=== PATIENT | male | born 1955 | race Caucasian/White ===

== ENCOUNTER 2020-10-12 11:51 | Emergency (ER) | payer MEDICARE, OTHER ==
[~2020-10-12] VITALS: Ht 188 cm; Wt 131.8 kg
[2020-10-12 13:15] VITALS: BP 145/94
--- NOTE | 2020-10-12 13:46 | RAD ---
EXAM: 3 views left shoulder 2 views left humerus DATE: 10/12/2020 12:24 PM INDICATION: Reason: FELL AND HIS COUCH WHILE BREAKING DOWN A CARDBOARD BOX / Spl. Instructions: / History: COMPARISON: No Prior FINDINGS/ IMPRESSION: 1. No acute fracture or dislocation of the left shoulder and left humerus. 2. AC joint degenerative changes are seen. 3. Greater tuberosity enthesopathy. Electronically signed by: Syd Boggs MD (10/12/2020 1:43 PM) ANABELLA
[2020-10-12] MEDS ORDERED: IBUP-1673 PO (13:54)
--- NOTE | 2020-10-12 13:54 | PHYS DOC ---
Past History Past Medical History: Hypertension Past Surgical History: Other Additional Past Surgical Histo: CARDIC STENT X 1 Alcohol Use: None General Adult EDM: Chief Complaint: UPPER EXTREMITY PAIN HPI: HPI: History obtained from patient. Patient is a 64-year-old male who presents with the chief complaint of left shoulder injury. He states approximate 2 hours prior to arrival he was folding up a cardboard box. He states he stepped on this causing him to slip and fall. He states he struck the left outside part of the shoulder against a couch. States he noted immediate pop. States it is somewhat painful to range his arm but is able to. Denies striking his head or any neck pain. Denies loss of consciousness. Denies any obvious deformity. Does not take any medicine prior to arrival. Denies numbness or tingling. Denies weakness. States pain is aching in nature. States it is constant made worse with movement. No further complaints. Review of Systems: Review of Systems: Constitutional: Denies fever or chills Eyes: Denies change in visual acuity HENT: Denies nasal congestion or sore throat Respiratory: Denies cough or shortness of breath Cardiovascular: Denies chest pain or edema GI: Denies abdominal pain, nausea, vomiting, bloody stools or diarrhea : Denies dysuria Musculoskeletal: Positive for shoulder pain Integument: Denies rash Neurologic: Denies headache, focal weakness or sensory changes Endocrine: Denies polyuria or polydipsia Lymphatic: Denies swollen glands Psychiatric: Denies depression or anxiety Allergies: Allergies: Allergies Coded Allergies Type Severity Reaction Last Updated Verified No Known Drug Allergies 10/12/20 No Physical Exam: PE: Constitutional: Well developed, well nourished, no acute distress, non-toxic appearance. [] HENT: Normocephalic, atraumatic, bilateral external ears normal, oropharynx moist, no oral exudates, nose normal. [] Eyes: PERRLA, EOMI, conjunctiva normal, no discharge. [] Neck: Normal range of motion, no tenderness, supple, no stridor. [] Cardiovascular:Heart rate regular rhythm, no murmur [] Lungs & Thorax: Bilateral breath sounds clear to auscultation [] Abdomen: , soft, no tenderness, no masses, no pulsatile masses. [] Skin: Warm, dry, no erythema, no rash. [] Back: No tenderness, no CVA tenderness. [] Extremities: L SHOULDER: Mild distal clavicle pain is present. Humerus pain is not present. Scapula without tenderness. Theres no obvious joint or bony deformity. ROM of the joints without ligamentous laxity. Pain is present with ROM. Radial head is non-tender. No overlying erythema. Neurologic: Alert and oriented X 3, normal motor function, normal sensory function, no focal deficits noted. [] Psychologic: Affect normal, judgement normal, mood normal. [] Current Patient Data: Vital Signs: Vital Signs Date Time Temp Pulse Resp B/P (MAP) Pulse Ox O2 Delivery O2 Flow Rate FiO2 10/12/20 13:15 82 16 145/94 (111 97 Room Air 10/12/20 12:14 98.1 EKG: EKG: [] Radiology/Procedures: Radiology/Procedures: [address] [address] IMAGING REPORT Signed PATIENT: KARTHIK MCKEON ACCOUNT: [id number] : 1955 LOCATION: ER AGE: 64 SEX: M EXAM STATUS: REG ER ORD. PHYSICIAN: MELISA MANZANARES DO REASON: FELL AND HIS COUCH WHILE BREAKING DOWN A CARDBOARD BOX PROCEDURE: SHOULDER 2+V LEFT EXAM: 3 views left shoulder 2 views left humerus DATE: 10/12/2020 12:24 PM INDICATION: Reason: FELL AND HIS COUCH WHILE BREAKING DOWN A CARDBOARD BOX / Spl. Instructions: / History: COMPARISON: No Prior FINDINGS/ IMPRESSION: 1. No acute fracture or dislocation of the left shoulder and left humerus. 2. AC joint degenerative changes are seen. 3. Greater tuberosity enthesopathy. Electronically signed by: Syd Shankar MD (10/12/2020 1:43 PM) [facility] DICTATED AND SIGNED BY: SYD SHANKAR MD DATE: 10/12/20 7899 CC: LEANN ENCARNACION MD; MELISA MANZANARES DO ~MTH0 0 [] Heart Score: Risk Factors: Risk Factors: DM, Current or recent (<one month) smoker, HTN, HLP, family history of CAD, obesity. Risk Scores: Score 0 - 3: 2.5% MACE over next 6 weeks - Discharge Home Score 4 - 6: 20.3% MACE over next 6 weeks - Admit for Clinical Observation Score 7 - 10: 72.7% MACE over next 6 weeks - Early Invasive Strategies Course & Med Decision Making: Course & Med Decision Making Pertinent Labs and Imaging studies reviewed. (See chart for details) [] Patient is a well-appearing 64-year-old male who presents with chief complaint of right shoulder pain status post fall prior to arrival. Initial vital signs unremarkable. Exam overall reassuring. Plain film imaging reveals no obvious acute osseous abnormality. Patient may be experiencing ligamentous injury or AC joint injury. No signs of broken bone. Sling will be deferred as I do feel this will most likely result in increased chance of frozen shoulder syndrome and patient is declining sling anyway. Supportive care measures were given for home. Instructed to follow-up with his primary care physician next week. Return precautions discussed and understood. Stable for discharge. Dragon Disclaimer: Lyubov Disclaimer: This electronic medical record was generated, in whole or in part, using a voice recognition dictation system. Departure Departure: Impression: Primary Impression: Left shoulder pain Qualified Codes: M25.512 - Pain in left shoulder Disposition: 01 DC HOME SELF CARE/HOMELESS Condition: STABLE Referrals: LEANN ENCARNACION MD (PCP) Patient Instructions: Acromioclavicular Injuries Additional Instructions: Please follow-up with your primary care physician next week. Scripts Ibuprofen (IBUPROFEN) 200 Mg Tablet 600 MG PO QIDPRN PRN for PAIN, #15 TAB Prov: MELISA MANZANARES DO 10/12/20 MELISA MANZANARES DO Oct 12, 2020 13:54
== END 2020-10-12 14:05 | disposition home or self-care (01) ==
LOC: ER 11:51
DX: M25.512 Pain in left shoulder (principal); I10 Essential (primary) hypertension; W01.0XXA Fall on same level from slipping, tripping and stumbling without subsequent striking against object, initial encounter; Y93.89 Activity, other specified; Y92.89 Other specified places as the place of occurrence of the external cause; Y99.8 Other external cause status
CPT/HCPCS: 73030; 73060; 99284